=== PATIENT | female | born 1995 | race Caucasian/White ===

== ENCOUNTER 2019-02-28 18:55 | Emergency (ER) | payer MEDICARE, OTHER ==
[~2019-02-28] VITALS: Ht 162.5 cm; Wt 74.8 kg
--- NOTE | ~2019-02-28 | EKG ---
[place], [place] ELECTROCARDIOGRAM REPORT NAME: AG AGUSTIN UNIT #: [id number] ROOM: DOCTOR: EPIPHANY DRAFT REPORT BIRTHDATE: [birth year] [facility] Test Date: 2019-02-28 Test Time: 20:28:06 Pat Name: AG AGUSTIN Department: Room: Gender: F Senior Product Consultant: : 1995 Requested By: DREW LEBRON PA-C Order Number: [id number] Reading MD: Sameer Boland MD Measurements Intervals [place] Rate: 79 P: 42 DE: 179 QRS: 34 QRSD: 91 T: 19 QT: 385 QTc: 442 Interpretive Statements Sinus rhythm Probable left atrial enlargement Baseline wander in lead(s) I,II,aVR,V1,V2,V3,V4,V5,V6 Electronically Signed On 03-02-2019 4:03:23 PDT by Sameer Boland MD CM:EKGRPT:ELECTROCARDIOGRAM REPORT 27 DREW LEBRON PA-C EPIPHANY DRAFT REPORT DREW LEBRON PA-C
[~2019-02-28 18:55] MED LIST: AMLODIPINE BESY10 MG PO; CELLCEPT500 MG PO; CIPROFLOXACIN500 MG PO; COREG12.5 M1 PO; DELTASONE5 MG PO; DIFLUCAN50 MG PO; KEFLEX500 MG PO; LASIX20 MG PO; LISINOPRIL20 MG PO; PREDNISONE10 M1 PO; PROGRAF0.5 MG PO; PROGRAF5 MG PO; RENVELA800 MG PO; SODIUM BICARBO650 MG PO; Zofran4 MG PO
[2019-02-28 19:56] LABS: BASO % 0.5 % (0.0-1.0); EOS # 0.1 10*3/uL (0.0-0.4); EOS % 1.8 % (1.0-4.0); HEMATOCRIT 32.9 % (37.0-47.0); HEMOGLOBIN 9.9 g/dl (12.0-16.0); LYMPH # 1.6 10*3/uL (1.3-4.4); LYMPH % 26.3 % (27.0-41.0); MEAN CELL VOLUME 102.2 fl (81.0-99.0); MEAN CORPUSCULAR HGB 30.7 pg (27.0-31.0); MEAN CORPUSCULAR HGB CONC 30.1 g/dl (33.0-37.0); MEAN PLATELET VOLUME 10.3 fl (9.6-12.3); MONO # 0.5 10*3/uL (0.1-1.0); MONO % 7.4 % (3.0-9.0); NEUT # 3.9 10*3/uL (2.3-7.9); NEUT % 63.7 % (47.0-73.0); NUCLEATED RED BLOOD CELL 0.3 % (0.0-0.0); PLATELET COUNT AUTOMATED 228 10*3/uL (130-400); RED BLOOD COUNT 3.22 10*6/uL (4.10-5.10); RED CELL DISTRI WIDTH 14.2 % (0-14.5); WHITE BLOOD COUNT 6.1 10*3/uL (4.8-10.8)
[2019-02-28 20:10] LABS: ALBUMIN 3.5 gm/dl (3.1-4.5); ALKALINE PHOSPHATASE 50 U/L (45-117); BUN 49 mg/dl (7-24); CHLORIDE 97 mmol/L (98-107); CREATININE 8.53 mg/dL (0.55-1.02); LIPASE 140 U/L (73-393); POTASSIUM 5.6 mmol/L (3.5-5.1); SGOT/AST 7 IU/L (3-35); SGPT/ALT 20 U/L (12-78); SODIUM 133 mmol/L (136-145); TOTAL PROTEIN 7.3 gm/dL (6.4-8.2)
[2019-02-28 20:13] LABS: BETA-HCG, QUANT < 1.0 mIU/mL (1-3)
[2019-02-28] MEDS ORDERED: MIRALAX POWDER17 G1 PO (20:54)
== END 2019-02-28 20:53 | disposition home or self-care (01) ==
LOC: ED 18:55
PROVIDERS: Physician Assistant
DX: K59.00 Constipation, unspecified (principal); I12.0 Hypertensive chronic kidney disease with stage 5 chronic kidney disease or end stage renal disease; N18.6 End stage renal disease; Z88.2 Allergy status to sulfonamides; Z88.1 Allergy status to other antibiotic agents; Z79.899 Other long term (current) drug therapy; Z99.2 Dependence on renal dialysis; Z94.0 Kidney transplant status